=== PATIENT | male | born 1945 | race Caucasian/White ===

== ENCOUNTER → 2018-05-20 | Outpatient (CLI) | payer MEDICARE ==
[~2018-05-20] MED LIST: ALLO300T PO; ASPI-496 PO; ASPI-621 PO; ATOR40TA78 PO; CLOP75TA52 PO; CRESTOR; FINA1TAB16 PO; METO25TA2 PO; PANT40TA5 PO; RING10003; ROSU10TA PO; TAMS-11 PO; TICA90TA PO; finasteride PO
== END | disposition home or self-care (01) ==
LOC: STAR 14:49
PROVIDERS: ATTEND Internal Medicine Geriatric Medicine
DX: Z01.818 Encounter for other preprocedural examination (principal); K92.2 Gastrointestinal hemorrhage, unspecified
CPT/HCPCS: 93005

== ENCOUNTER 2018-05-25 06:38 | Day surgery (SDC) | payer MEDICARE ==
[~2018-05-25] VITALS: Ht 172.7 cm; Wt 89.6 kg
[2018-05-25] MEDS ORDERED: LACTATED RINGERS 1,000 ML IV SCH (07:27)
[2018-05-25 07:29] VITALS: BP 144/80
[2018-05-25] MEDS ORDERED: FENTANYL PF 100 MCG/2ML ONE (08:46)
[2018-05-25] MEDS ORDERED: MIDAZOLAM 1 MG/ML, 2ML ONE (08:46)
[2018-05-25] MEDS ORDERED: PROPOFOL 10 MG/ML, 20ML ONE (08:49)
[2018-05-25] MEDS ORDERED: SUCCINYLCHOLINE 20 MG/ML, 10ML ONE (08:49)
[2018-05-25] MEDS ORDERED: EPHEDRINE 50 MG/ML, 1ML ONE (08:49)
[2018-05-25] MEDS ORDERED: ONDANSETRON 2MG/ML, 2ML ONE (08:49)
[2018-05-25] MEDS ORDERED: METOCLOPRAMIDE 5 MG/ML, 2ML ONE (08:49)
[2018-05-25] MEDS ORDERED: DEXAMETHASONE 4 MG/ML, 1ML ONE (08:49)
[2018-05-25] MEDS ORDERED: LIDOCAINE 2% 100MG/5ML SYRINGE ONE (08:49)
[2018-05-25 09:54] LABS: ALANINE AMINOTRANSFERASE 37 U/L (12-78); ALBUMIN 3.7 g/dL (3.4-5.0); ANION GAP 5 mmol/L (5-15); CHLORIDE 108 mmol/L (98-107); CREATININE 1.02 mg/dL (0.7-1.3)
[2018-05-25 09:57] LABS: ALKALINE PHOSPHATASE 62 U/L (45-117); BILIRUBIN,TOTAL 1.4 mg/dL (0.2-1.0); TOTAL PROTEIN 6.8 g/dL (6.4-8.2)
[2018-05-25] MEDS ORDERED: FENTANYL PF 100 MCG/2ML IV PRN (10:30)
[2018-05-25] MEDS ORDERED: ONDANSETRON 2MG/ML, 2ML IVPush PRN (10:30)
[2018-05-25] MEDS ORDERED: LABETALOL 5MG/ML, 20ML IV PRN (10:30)
[2018-05-25] MEDS ORDERED: HYDROmorphone 1 MG/ML, 1ML IV PRN (10:30)
[2018-05-25] MEDS ORDERED: MIDAZOLAM 1 MG/ML, 2ML IV PRN (10:30)
[2018-05-25] MEDS ORDERED: MEPERIDINE/PF 25MG/0.5ML IVPush PRN (10:30)
[2018-05-25] MEDS ORDERED: OXYcodone 5 MG/5 ML ORAL.SOL UDC PO PRN (10:30)
== END 2018-05-25 12:25 | disposition home or self-care (01) ==
LOC: OUT 06:38
PROVIDERS: ATTEND Internal Medicine Geriatric Medicine
DX: K92.2 Gastrointestinal hemorrhage, unspecified (principal); I25.10 Atherosclerotic heart disease of native coronary artery without angina pectoris; M10.9 Gout, unspecified; N40.0 Benign prostatic hyperplasia without lower urinary tract symptoms; E78.1 Pure hyperglyceridemia; Z95.5 Presence of coronary angioplasty implant and graft; Z72.89 Other problems related to lifestyle; Z79.82 Long term (current) use of aspirin; Z79.899 Other long term (current) drug therapy; Z90.49 Acquired absence of other specified parts of digestive tract
CPT/HCPCS: 36415; 44799; 80053; A4648; J0330; J1100; J2250; J2405; J2704; J2765; J3010

== ENCOUNTER → 2019-07-15 | Outpatient (CLI) | payer MEDICARE ==
[~2019-07-15] MED LIST changes: -ASPI-621 PO; +ASPI81TA45 PO; +REGADENOSON 0.4 MG/5 ML SYRINGE ONE; -ROSU10TA PO; +ROSU10TA2 PO
== END | disposition home or self-care (01) ==
LOC: CFH 06:46
PROVIDERS: ATTEND Internal Medicine Cardiovascular Disease
DX: I08.0 Rheumatic disorders of both mitral and aortic valves (principal); E78.5 Hyperlipidemia, unspecified; Z98.61 Coronary angioplasty status; Z82.49 Family history of ischemic heart disease and other diseases of the circulatory system
CPT/HCPCS: 78452; 93017; 93306; A9502; J2785